=== PATIENT | female | born 1995 | race Caucasian/White ===

== ENCOUNTER 2017-03-09 01:29 | Emergency (ER) | payer BC ==
[~2017-03-09] VITALS: Ht 162.6 cm; Wt 74.0 kg
[2017-03-09 01:37] VITALS: TEMP 36.7; Ht 162.6 cm; Wt 74.0 kg
[2017-03-09] MEDS ORDERED: AMPH30TA2 PO (02:45)
[2017-03-09] MEDS ORDERED: ALPR1TAB3 PO (02:46)
[2017-03-09 05:06] VITALS: BP 109/71; PULSE 99; O2SAT 95
[2017-03-09] MEDS ORDERED: ACETAMINOPHEN 325 MG TAB PO STA (05:48)
[2017-03-09] MEDS ORDERED: IBUPROFEN 600 MG TAB PO STA (05:48)
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
== END 2017-03-09 06:37 | disposition home or self-care (01) ==
LOC: EDBD 01:29 → C.EDB 01:31
DX: S09.90XA Unspecified injury of head, initial encounter (principal); Y09 Assault by unspecified means; F17.200 Nicotine dependence, unspecified, uncomplicated; Z79.899 Other long term (current) drug therapy